=== PATIENT | female | born 1970 | race Caucasian/White ===

== ENCOUNTER 2022-08-16 08:12 | Inpatient (IN) | payer OTHER ==
[2022-08-16] MEDS ORDERED: ONDANSETRON 4 MG/2 ML VIAL ONE (08:28)
[2022-08-16 08:41] LABS: Absolute Lymphocytes (CBC) 2.6 K/uL (0.7-4.9); Hematocrit 29.8 % (36.0-45.0); Lymphocytes % 11.7 % (15.3-44.8); MCV 87.7 fL (80-100); MPV 7.2 fL (7.6-11.3)
--- NOTE | 2022-08-16 08:55 | RAD REPORT ---
EXAM DESCRIPTION: RAD - Chest Single View - 08/16/2022 8:44 am CLINICAL HISTORY: DYSPNEA COMPARISON: No comparisons FINDINGS: Lines: None. Lungs: Widespread bilateral interstitial and airspace disease. Pleural: No significant pleural effusions or pneumothorax. Cardiac: Mild cardiomegaly suspected. Mediastinum: Within normal limits. Bones: No acute fractures. Other: None IMPRESSION: Findings likely representing severe pneumonia. A chest CT is pending.
[2022-08-16 09:04] LABS: Platelet Estimate ADEQ
[2022-08-16 09:05] LABS: Albumin 2.5 g/dL (3.4-5.0); Bilirubin Direct 1.1 mg/dL (0-0.2); Bilirubin Total 1.7 mg/dL (0.2-1.0); Blood Morphology Comment NOT SEEN (NOT SEEN); Platelets, Giant FEW; Protein, Total 7.1 g/dL (6.4-8.2); Toxic Granulation PRESENT
[2022-08-16 09:08] LABS: Magnesium 2.8 mg/dL (1.8-2.4); Potassium 3.8 mmol/L (3.5-5.1); Troponin High Sensitivity 29.9 pg/mL (<58.9)
[2022-08-16] MEDS ORDERED: AZITHROMYCIN 500 MG INJ IVPB ONE (09:49)
[2022-08-16] MEDS ORDERED: CEFTRIAXONE 1000 MG/VIAL ONE (09:49)
[2022-08-16] MEDS ORDERED: NA CHLORIDE 0.9% 50 ML IV ONE (09:50)
[2022-08-16] MEDS ORDERED: NA CHLORIDE 0.9% 250 ML ONE (09:50)
[2022-08-16 09:52] LABS: SARS-COV-2 RT PCR NEGATIVE (NEGATIVE)
--- NOTE | 2022-08-16 10:08 | RAD REPORT ---
EXAM DESCRIPTION: CT - Chest For Pe Angio - 08/16/2022 9:58 am CLINICAL HISTORY: Shortness of breath COMPARISON: None. TECHNIQUE: Dynamically enhanced axial 3 mm thick images of the chest were obtained during administra tion of <100> mL Isovue 370 IV contrast. Coronal and oblique reconstruction images were generated and reviewed. Exam utilizes a protocol for optimal evaluation of pulmonary arterial tree. Maximum intensity projections 3D imaging was utilized All CT scans are performed using dose optimization technique as appropriate and may include automated exposure control or mA/KV adjustment according to patient size. FINDINGS: A pulmonary embolus is not seen. A thoracic aortic aneurysm is not noted. A pleural effusion is not seen. A pericardial effusion is not seen. Marked bilateral alveolar opacities. Lung consolidations. IMPRESSION: Negative for a pulmonary embolism. Marked bilateral pulmonary opacities probably pneumonia
[2022-08-16] MEDS ORDERED: ACETAMINOPHEN 325 MG TABLET ONE (10:22)
[2022-08-16] MEDS ORDERED: NA CHLORIDE 0.9% 1,000 ML ONE (10:52)
--- NOTE | 2022-08-16 11:10 | RAD REPORT ---
EXAM DESCRIPTION: US - Abdomen Exam Limited - 08/16/2022 10:56 am CLINICAL HISTORY: Abdominal pain. COMPARISON: None. FINDINGS: Borderline gallbladder distention The gallbladder wall is not thickened. A gallstone is not seen. The biliary tree is normal caliber. IMPRESSION: Borderline gallbladder distention
[2022-08-16] MEDS ORDERED: METHYLPREDNISOLONE 125 MG INJ ONE (11:14)
--- NOTE | 2022-08-16 11:49 | EDPHYS ---
Physician Documentation [facility] Name: Yasmani Carmona Age: 51 yrs Sex: Female : 1970 Arrival Date: 08/16/2022 Time: 08:15 Bed 7 Private MD: ED Physician Nicho Sparks HPI: 08/16 08:25 This 51 yrs old Female presents to ER via Unassigned with complaints of shortness of kb breath. 08:25 The patient has shortness of breath at rest. Onset: The symptoms/episode began/occurred kb 4 day(s) ago. Duration: The symptoms are continuous. The patient's shortness of breath is aggravated by exertion, supine position, is alleviated by nothing. Associated signs and symptoms: Pertinent positives: productive cough, fever. Severity of symptoms: At their worst the symptoms were moderate in the emergency department the symptoms are unchanged. The patient has not experienced similar symptoms in the past. The patient has not recently seen a physician. Pt reports shortness of breath and cough for 3-4 days. States she had fever 2 days ago. Symptoms have gotten progressively worse so she called 911 this morning. EMS reports O2 sat 50% upon their arrival, up to 94% on A\T\A treatment. Pt o2 sat 52% upon her arrival to ER. . 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 - Social history:: Smoking status: . ROS: 08:27 Cardiovascular: Negative for chest pain, palpitations, and edema. kb 08:27 Constitutional: Positive for fever. 08:27 Respiratory: Positive for cough, dyspnea on exertion, shortness of breath. 08:27 Abdomen/GI: Positive for nausea and vomiting. 08:27 All other systems are negative. Exam: 08:28 Constitutional: This is a well developed, well nourished patient who is awake, alert, kb and in no acute distress. Head/Face: Normocephalic, atraumatic. ENT: Moist Mucous membranes Cardiovascular: Regular rate and rhythm with a normal S1 and S2. No gallops, murmurs, or rubs. No pulse deficits. Abdomen/GI: Soft, non-tender. No distention Skin: Warm, dry with normal turgor. Normal color. MS/ Extremity: Pulses equal, no cyanosis. Neurovascular intact. Full, normal range of motion. Neuro: Awake and alert, GCS 15, oriented to person, place, time, and situation. Moves all extremities. Normal gait. Psych: Awake, alert, with orientation to person, place and time. Behavior, mood, and affect are within normal limits. 08:28 Respiratory: moderate respiratory distress is noted, Respirations: labored breathing, Breath sounds: rhonchi, that are moderate, are located in both bases. 08:41 ECG was reviewed by the Attending Physician. nayeli Vital Signs: 08:15 Pulse Ox 72% on R/A; jl7 08:15 BP 115 / 77; Pulse 109; Resp 40; Pulse Ox 52% on R/A; ll1 08:40 BP 137 / 68; Pulse 104; Resp 30; Temp 99.7(O); Pulse Ox 93% ; ll1 09:15 BP 110 / 80; Pulse 90; Resp 20; Pulse Ox 97% on BiPAP; ll1 10:00 Pulse Ox 95% on Non-rebreather mask; ll1 10:10 Pulse Ox 90% on 4 lpm NC; ll1 10:44 BP 118 / 99; Pulse 85; Resp 18; Pulse Ox 99% on BiPAP; ll1 11:28 BP 107 / 81; Pulse 81; Resp 20; Pulse Ox 98% ; ll1 12:55 BP 110 / 97; Pulse 79; Resp 17; Pulse Ox 100% on BiPAP; ll1 13:55 BP 111 / 76; Pulse 75; Pulse Ox 99% on R/A; ll1 14:55 BP 109 / 84; Pulse 75; Resp 18; Pulse Ox 98% on BiPAP; ll1 10:[address] ll1 10:10 NC not sufficient enough ll1 MDM: 08:15 Patient medically screened. nayeli 08:23 ED course: Patient called her son Nemesio and case was discussed with him via phone. RN ms3 took patient's phone number down to keep patient son informed during hospitalization.. 08:28 Data reviewed: vital signs, nurses notes. Data interpreted: Pulse oximetry: on room air kb is 52 %. Interpretation: hypoxia. Plan: O2 by Mask applied. 08:28 ED course: Pt O2 sat 98% on nonrebreather. kb 10:11 Counseling: I had a detailed discussion with the patient and/or guardian regarding: the kb historical points, exam findings, and any diagnostic results supporting the discharge/admit diagnosis, lab results, radiology results, the need for further work-up and treatment in the hospital. ED course: Severe sepsis criteria met at 0855: Source (A): pneumonia; SIRS criteria (B): HR, RR, WBC; Organ Dysfunction (C): Bipap, lactate. 10:39 Physician consultation: Stas Ceja MD was contacted at 10:39, regarding admission, patient's condition, would like further tests performed, us of liver. 08/16 08:16 Order name: Basic Metabolic Panel; Complete Time: 09:11 kb 08/16 08:16 Order name: CBC with Diff; Complete Time: 09:11 08/16 08:16 Order name: Magnesium; Complete Time: 09:11 08/16 08:16 Order name: NT PRO-BNP; Complete Time: 09:11 08/16 08:16 Order name: Troponin HS; Complete Time: 09:11 08/16 08:18 Order name: Blood Culture Adult (2) [facility] 08/16 08:18 Order name: Lactate w/ 2H reflex if indic.; Complete Time: 09:[address] [facility] 08/16 08:18 Order name: LFT's; Complete Time: 09:[address] [facility] 08/16 08:19 Order name: COVID-19/FLU A+B; Complete Time: 10:[address] [facility] 08/16 08:47 Order name: Manual Differential; Complete Time: 09:11 EDMO 08/16 11:02 Order name: UDS; Complete Time: 12:32 08/16 11:50 Order name: ABG; Complete Time: 12:32 08/16 12:21 Order name: Lactate Sepsis 2 HR Follow-up; Complete Time: 12:32 EDMS 08/16 12:41 Order name: CBC with Automated Diff EDMO 08/16 08:16 Order name: XRAY Chest (1 view); Complete Time: 09:01 08/16 08:16 Order name: BIPAP 08/16 08:53 Order name: Chest For Pe Angio; Complete Time: 11:31 EDMS 08/16 10:30 Order name: US Abdomen Limited; Complete Time: 11:11 kb 08/16 12:41 Order name: CBC with Automated Diff EDMO 08/16 12:41 Order name: Comprehensive Metabolic Panel EDMO 08/16 12:41 Order name: Comprehensive Metabolic Panel EDMO 08/16 12:41 Order name: Magnesium EDMO 08/16 12:41 Order name: Magnesium EDMO 08/16 12:41 Order name: Chest Single View EDMO 08/16 12:41 Order name: Chest Single View EDMO 08/16 12:41 Order name: Chest Single View [facility] 08/16 08:16 Order name: EKG; Complete Time: 08:16 kb 08/16 08:16 Order name: Cardiac monitoring; Complete Time: 08:36 kb 08/16 08:16 Order name: EKG - Nurse/Tech; Complete Time: 08:36 kb 08/16 08:16 Order name: IV Saline Lock; Complete Time: 08:36 kb 08/16 08:16 Order name: Labs collected and sent; Complete Time: 08:36 kb 08/16 08:16 Order name: O2 Per Protocol; Complete Time: 08:36 kb 08/16 08:16 Order name: O2 Sat Monitoring; Complete Time: 08:36 kb 08/16 12:41 Order name: CONS Physician Consult EDMO 08/16 12:41 Order name: NPO EDMO 08/16 12:48 Order name: Respiratory Therapy Consult EDMO EC:41 Rate is 97 beats/min. Rhythm is regular. QRS [place] is Normal. MO interval is normal at kb 120 msec. QRS interval is normal at 74 msec. QT interval is prolonged at 530 msec. Administered Medications: 08:30 Drug: Zofran (Ondansetron) 4 mg Route: IVP; Site: right antecubital; ll1 09:15 Follow up: Response: No adverse reaction ll1 08:47 Drug: Lasix (furosemide) 40 mg Route: IVP; Site: right antecubital; ll1 10:29 Follow up: Response: No adverse reaction ll1 10:10 Drug: Rocephin (cefTRIAXone) 1 grams Route: IV; Rate: calculated rate; Site: right ll1 antecubital; 10:48 Follow up: Response: No adverse reaction; IV Status: Completed infusion; IV Intake: [id number] 10:25 Drug: Tylenol 650 mg Route: PO; ll1 11:02 Follow up: Response: No adverse reaction ll1 10:49 Drug: Zithromax (azithromycin) 500 mg Route: IVPB; Infused Over: 1 hrs; Site: right ll1 antecubital; 12:17 Follow up: Response: No adverse reaction; IV Status: Completed infusion; IV Intake: ll1 1000ml 10:55 Drug: NS 0.9% 1000 ml Route: IV; Rate: 1000 ml; Site: right antecubital; ll1 11:02 Follow up: Response: No adverse reaction; IV Status: Order to discontinue infusion; IV ll1 Intake: 150ml 11:26 Drug: SOLU-Medrol (methylPrednisoLONE) 125 mg Route: IVP; Site: right antecubital; ll1 12:17 Follow up: Response: No adverse reaction ll1 Disposition: 08:23 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 HPI: 51-year-old female ms3 presents via clued EMS for shortness of breath that began 3 to 4 days prior to arrival. On EMS arrival patient's oxygen saturation was 50% on room air. EMS administered 1 albuterol Atrovent treatment in route. Patient denies pain at this time. My personal exam of patient reveals: Patient is alert, in moderate respiratory distress. Heart rate is tachycardic and regular. Lung sounds reveal rales in bilateral posterior lower lobes. Skin is nondiaphoretic, and without rashes. Patient's cranial nerves II through XII grossly intact, sensation intact. Attestation: The patient's history, exam findings, diagnostics, and a summary of any interventions or procedures was reviewed in detail with Nicho Sparks DO. 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 I agree with assessment ms3 and care plan and confirm the diagnosis (es) above. 12:38 Critical Care:. ms3 Disposition Summary: 08/16/22 11:48 Hospitalization Ordered Hospitalization Status: Inpatient Admission kb Provider: Stas Ceja Condition: Stable nayeli Problem: new kb Symptoms: are unchanged kb Bed/Room Type: Standard kb Location: Intensive Care Unit(08/16/22 19:39) Room Assignment: 2-(08/16/22 19:39) cg Diagnosis - Severe sepsis without septic shock kb - Pneumonia, unspecified organism kb Forms: - Medication Reconciliation Form kb - SBAR form kb Critical care time excluding procedures: 12:38 Critical care time: Bedside Care: 35 minutes, Consultation: 10 minutes, Family ms3 Intervention: 5 minutes. Total time: 50 minutes Signatures: Dispatcher [employer] EDMS Deena Lim, PAPA MUÑOZ-Laura Hoyt RN RN cg Emilia Foster RN RN jl7 Rebecca Artis RN RN ll1 Nicho Sparks, DO ms3 Corrections: (The following items were deleted from the chart) 08:51 08:28 Chest For Pe Angio ordered. EDMO EDMS 11:49 11:48 Telemetry/MedSurg (Inpatient) kb kb 11:49 11:48 kb kb 16:40 11:49 Intensive Care Unit kb jl7 16:40 11:49 kb jl7 19:23 16:40 [facility] ER HOLD jl7 cg 19:23 16:40 ERHOLD- jl7 cg 19:39 19:23 Telemetry/MedSurg (Inpatient) cg cg 19:39 19:23 cg cg
--- NOTE | 2022-08-16 11:49 | ER ---
Nurse's Notes [facility] Name: Yasmani Carmona Age: 51 yrs Sex: Female : 1970 Arrival Date: 08/16/2022 Time: 08:15 Bed 7 Private MD: Diagnosis: Severe sepsis without septic shock;Pneumonia, unspecified organism Presentation: 08/16 08:15 Chief complaint: EMS states: Toned out for difficulty breathing, pt 50% on RA, up to jl7 95% with albuterol and non-rebreather. Coronavirus screen: Client presents with at least one sign or symptom that may indicate coronavirus-19. Ebola Screen: No symptoms or risks identified at this time. Risk Assessment: Do you want to hurt yourself or someone else? Patient reports no desire to harm self or others. Onset of symptoms is unknown. 08:15 Method Of Arrival: EMS: [facility] 08:15 Acuity: MATT 1 [facility] 08:15 Initial Sepsis Screen: Does the patient meet any 2 criteria? RR > 20 per min. HR > 90 ll1 bpm. Yes Does the patient have a suspected source of infection? Yes: Productive cough/pneumonia. 08:16 Chief complaint: Patient states: SOB/cough for 3-4 days. States she has fever at night. ll1 Albuterol inhaler isn't helping. Triage Assessment: 08:34 General: Appears distressed, uncomfortable, ill, Behavior is cooperative, appropriate ll1 for age, restless. Pain: Denies pain. Respiratory: Reports shortness of breath cough that is labored breathing Airway is patent Trachea midline Respiratory effort is labored, using tripod position, Respiratory pattern is symmetrical, tachypnea Breath sounds are coarse bilaterally. Onset: The symptoms/episode began/occurred 3-4 days ago. GI: Abdomen is flat, Reports nausea, vomiting. 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 - Social history:: Smoking status: . Screenin:32 Abuse screen: Denies threats or abuse. Nutritional screening: No deficits noted. ll1 Tuberculosis screening: No symptoms or risk factors identified. Fall Risk IV access (20 points). Mental Status- Overestimates/Forgets Limitations (15 pts.). Total Little Fall Scale indicates Low Risk Score (25-44 pts). Fall prevention measures have been instituted. Side Rails Up X 2 Placed close to Nursing Station Frequent Obs/Assesments occuring As available Patient and Family Educated on Fall Prevention Program and strategies. Assessment: 08:35 Reassessment: No changes from previously documented assessment. Patient and/or family ll1 updated on plan of care and expected duration. Pain level reassessed. 09:21 Reassessment: Patient states symptoms have improved. General: Appears ill, slender, kr3 Behavior is calm, cooperative. 09:50 Reassessment: No changes from previously documented assessment. used bedpan to urinate, ll1 tolerated well. To CT via stretcher on NRB Patient states symptoms have improved. 10:19 Reassessment: No changes from previously documented assessment. Patient and/or family ll1 updated on plan of care and expected duration. Pain level reassessed. back on bipap. 10:44 Reassessment: No changes from previously documented assessment. Patient and/or family ll1 updated on plan of care and expected duration. Pain level reassessed. 11:28 Reassessment: No changes from previously documented assessment. Patient and/or family ll1 updated on plan of care and expected duration. Pain level reassessed. resting Patient states symptoms have improved. 12:15 Reassessment: No changes from previously documented assessment. Dr. Ceja at bedside. ll1 13:22 Reassessment: Patient appears in no apparent distress at this time. Patient and/or hb family updated on plan of care and expected duration. Pain level reassessed. 14:57 Reassessment: No changes from previously documented assessment. Patient and/or family ll1 updated on plan of care and expected duration. Pain level reassessed. 20:12 Reassessment: Patient appears in no apparent distress at this time. attempted to call aa9 report. Vital Signs: 08:15 Pulse Ox 72% on R/A; jl7 08:15 BP 115 / 77; Pulse 109; Resp 40; Pulse Ox 52% on R/A; ll1 08:40 BP 137 / 68; Pulse 104; Resp 30; Temp 99.7(O); Pulse Ox 93% ; ll1 09:15 BP 110 / 80; Pulse 90; Resp 20; Pulse Ox 97% on BiPAP; ll1 10:00 Pulse Ox 95% on Non-rebreather mask; ll1 10:10 Pulse Ox 90% on 4 lpm NC; ll1 10:44 BP 118 / 99; Pulse 85; Resp 18; Pulse Ox 99% on BiPAP; ll1 11:28 BP 107 / 81; Pulse 81; Resp 20; Pulse Ox 98% ; ll1 12:55 BP 110 / 97; Pulse 79; Resp 17; Pulse Ox 100% on BiPAP; ll1 13:55 BP 111 / 76; Pulse 75; Pulse Ox 99% on R/A; ll1 14:55 BP 109 / 84; Pulse 75; Resp 18; Pulse Ox 98% on BiPAP; ll1 10:[address] ll1 10:10 NC not sufficient enough ll1 ED Course: 08:15 Patient arrived in ED. kb 08:15 Deena Lim FNP-C is PHCP. kb 08:15 Nicho Sparks DO is Attending Physician. kb 08:15 Arm band placed on right wrist. jl7 08:28 Triage completed. jl7 08:30 Rebecca Artis, RN is Primary Nurse. ll1 08:30 Inserted saline lock: 18 gauge in right antecubital area, using aseptic technique. ll1 Blood collected. 08:35 Patient has correct armband on for positive identification. Bed in low position. Call ll1 light in reach. Side rails up X2. Client placed on continuous cardiac and pulse oximetry monitoring. NIBP monitoring applied. delineator on. 08:37 Lactate w/ 2H reflex if indic. Sent. ll1 08:37 Troponin HS Sent. ll1 08:37 NT PRO-BNP Sent. ll1 08:37 Magnesium Sent. ll1 08:37 CBC with Diff Sent. ll1 08:37 Basic Metabolic Panel Sent. ll1 08:46 XRAY Chest (1 view) In Process Unspecified. EDMS 09:09 Notified ED physician of a critical lab result(s). lactate 3.2, AST 1468, ALT 780. ll1 10:00 Chest For Pe Angio In Process Unspecified. EDMS 10:15 Blood Culture Adult (2) Sent. ll1 10:55 US Abdomen Limited In Process Unspecified. EDMS 11:23 UDS Sent. kr3 11:48 Stas Ceja MD is Hospitalizing Provider. kb 12:16 No provider procedures requiring assistance completed. Patient admitted, IV remains in ll1 place. Administered Medications: 08:30 Drug: Zofran (Ondansetron) 4 mg Route: IVP; Site: right antecubital; ll1 09:15 Follow up: Response: No adverse reaction ll1 08:47 Drug: Lasix (furosemide) 40 mg Route: IVP; Site: right antecubital; ll1 10:29 Follow up: Response: No adverse reaction ll1 10:10 Drug: Rocephin (cefTRIAXone) 1 grams Route: IV; Rate: calculated rate; Site: right ll1 antecubital; 10:48 Follow up: Response: No adverse reaction; IV Status: Completed infusion; IV Intake: 39same9 10:25 Drug: Tylenol 650 mg Route: PO; ll1 11:02 Follow up: Response: No adverse reaction ll1 10:49 Drug: Zithromax (azithromycin) 500 mg Route: IVPB; Infused Over: 1 hrs; Site: right ll1 antecubital; 12:17 Follow up: Response: No adverse reaction; IV Status: Completed infusion; IV Intake: ll1 1000ml 10:55 Drug: NS 0.9% 1000 ml Route: IV; Rate: 1000 ml; Site: right antecubital; ll1 11:02 Follow up: Response: No adverse reaction; IV Status: Order to discontinue infusion; IV ll1 Intake: 150ml 11:26 Drug: SOLU-Medrol (methylPrednisoLONE) 125 mg Route: IVP; Site: right antecubital; ll1 12:17 Follow up: Response: No adverse reaction ll1 Medication: 08:35 VIS not applicable for this client. ll1 Intake: 10:48 IV: 50ml; Total: 50ml. ll1 11:02 IV: 150ml; Total: 200ml. ll1 12:17 IV: 1000ml; Total: 1200ml. ll1 Outcome: 11:48 Decision to Hospitalize by Provider. kb 12:16 Condition: stable ll1 12:16 Instructed on the need for admit. 15:00 Admitted to ER Hold. Please see [facility] for further documentation. ll1 21:50 Patient left the ED. bb Signatures: Dispatcher [employer] EDMS Deena Lim, ROTARY HELPER-C ROTARY HELPER-Susannah Bruner RN RN bb Machelle Vincent, MARCO ANTONIO RN Emilia Foster RN RN jl7 Rebecca Artis RN RN ll1 Adali Davis RN RN aa9 Chiquita Crawford RN RN kr3 Corrections: (The following items were deleted from the chart) 08:51 08:46 In radiology for Chest For Pe Angio. EDNJ EDMS 12:56 11:28 BP 107 / 81; Pulse 81bpm; Resp 20bpm; Pulse Ox 98% RA; ll1 ll1 20:46 20:12 Reassessment: Patient appears in no apparent distress at this time. attempted to aa9 call report aa9
[2022-08-16 11:59] LABS: Barbiturates NEGATIVE (NEGATIVE); Benzodiazepines NEGATIVE (NEGATIVE); Cocaine NEGATIVE (NEGATIVE); METHAMPHETAM NEGATIVE (NEGATIVE); Methadone NEGATIVE (NEGATIVE); Opiates NEGATIVE (NEGATIVE); Phencyclidine NEGATIVE (NEGATIVE); THC Cannibis NEGATIVE (NEGATIVE)
[2022-08-16 12:14] LABS: Arterial Blood Carboxyhemoglob 0.3 % (0-1.5); Blood Gas Oxyhemoglobin 94.7 % (94-97); Blood O2 Saturation 95.9 % (92-98.5)
[2022-08-16] MEDS ORDERED: ONDANSETRON 4 MG/2 ML VIAL IV PRN (12:36)
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
[2022-08-16] MEDS ORDERED: ACETYLCYSTEINE IV SCH ×3 (14:00→19:00)
[2022-08-16] MEDS ORDERED: D5W IV SCH ×2 (14:00→19:00)
[2022-08-16] MEDS ORDERED: WATER IV SCH (15:00)
[2022-08-16] MEDS ORDERED: DEXTROSE 5% IV SCH (15:00)
[2022-08-16] MEDS ORDERED: OSELTAMIVIR 75 MG CAP ONE (16:11)
[2022-08-16] MEDS ORDERED: Levofloxacin 750mg IV 750 MG/150 ML BAG IV ONE (16:11)
[2022-08-16] MEDS ORDERED: ENOXAPARIN 40 MG/0.4 ML SQ ONE (16:11)
[2022-08-16] MEDS ORDERED: ACETYLCYST 6,000 MG/30 ML VIAL ONE (16:12)
[2022-08-16] MEDS: OSELTAMIVIR 75 MG CAP PO SCH ×2 (16:30→22:14)
[2022-08-16] MEDS: ACETYLCYST 20% 800 MG/4 ML VIAL PO SCH ×3 (16:30→22:24)
[2022-08-16] MEDS: ENOXAPARIN 40 MG/0.4 ML SQ SCH (16:30)
[2022-08-16] MEDS: Levofloxacin 750mg IV 750 MG/150 ML BAG IV SCH (16:30)
[2022-08-16] MEDS ORDERED: METHYLPREDNISOLONE 125 MG INJ IV SCH (17:00)
[2022-08-16] MEDS ORDERED: ACETAMINOPHEN 500 MG TAB ONE (17:57)
[2022-08-16] MEDS: ACETAMINOPHEN 500 MG TAB PO PRN ×2 (18:07→22:14)
[2022-08-16] MEDS: METHYLPREDNISOLONE 125 MG INJ IV SCH (22:13)
[2022-08-16] MEDS: QUETIAPINE 100MG TAB PO SCH (23:47)
[2022-08-17 04:52] LABS: Absolute Lymphocytes (CBC) 2.1 K/uL (0.7-4.9); Hematocrit 26.8 % (36.0-45.0); Lymphocytes % 11.7 % (15.3-44.8); MCV 87.3 fL (80-100); MPV 7.3 fL (7.6-11.3); RBC Red Blood Cell Count 3.06 M/uL (3.86-4.86)
[2022-08-17 05:11] LABS: Albumin 2.3 g/dL (3.4-5.0); Bilirubin Total 1.2 mg/dL (0.2-1.0); Magnesium 2.9 mg/dL (1.8-2.4); Potassium 3.8 mmol/L (3.5-5.1); Protein, Total 7.2 g/dL (6.4-8.2)
[2022-08-17] MEDS: ENOXAPARIN 40 MG/0.4 ML SQ SCH (07:19)
[2022-08-17] MEDS: OSELTAMIVIR 75 MG CAP PO SCH ×2 (07:20→22:12)
[2022-08-17] MEDS: ACETYLCYST 20% 800 MG/4 ML VIAL PO SCH ×3 (07:20→21:00)
[2022-08-17] MEDS: METHYLPREDNISOLONE 125 MG INJ IV SCH ×2 (07:20→22:11)
--- NOTE | 2022-08-17 09:21 | RAD REPORT ---
EXAM DESCRIPTION: RAD - Chest Single View - 08/17/2022 5:59 am CLINICAL HISTORY: flu, ards Chest pain. COMPARISON: Chest Single View dated 08/16/2022 FINDINGS: Portable technique limits examination quality. Extensive bilateral pulmonary opacities are noted, mildly improved since yesterday's study. The heart is upper limit normal in size. No displaced fractures. IMPRESSION: Mild improvement in lung aeration is seen since yesterday's examination.
[2022-08-17] MEDS: ACETAMINOPHEN 500 MG TAB PO PRN (10:48)
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
--- NOTE | 2022-08-17 12:51 | EKG ---
Test Date: 2022-08-16 Test Time: 08:40:24 Towel Stretcher: ALAINA MEASUREMENT RESULTS: Intervals: Rate: 97 VT: 120 QRSD: 74 QT: 418 QTc: 530 [place]: P: 67 VT: 120 QRS: 18 T: -6 INTERPRETIVE STATEMENTS: Normal sinus rhythm Nonspecific T wave abnormality Prolonged QT Abnormal ECG No previous ECG available for comparison Electronically Signed On 08-17-22 12:49:16 DOPSTER by Evelio Elliott
[2022-08-17] MEDS ORDERED: KETOROLAC 30 MG/ML INJ IV ONE (13:00)
[2022-08-17] MEDS: Levofloxacin 750mg IV 750 MG/150 ML BAG IV SCH (13:17)
[2022-08-17] MEDS: ENSURE ENLIVE 237 ML CAN PO SCH ×2 (13:32→21:00)
--- NOTE | 2022-08-17 16:17 | P.PN ---
Date of Service: 08/17/22 Subjective: no acute events overnight improving slightly ROS: 10 point ROS as noted above, otherwise negative Physical exam GEN: Alert, oriented, NAD HEENT: Normal conjunctiva, sclera anicteric CV: Regular rate and rhythm, no edema Pulm: mild labored respirations devaughn nonrebreather ABD: Soft, nontender, nondistended MSK: No joint tenderness Integumentary: No rashes, old skin grafts / scars, no evidence of infection Neuro: Normal speech, normal affect Problem List acute hypoxemic respiratory failure secondary to flu A , viral pneumonia, ARDS MARKY elevated LFTs - 2/2 hypoxic liver injury chronic pain patient with a few days of not feeling well and became short of breath day prior to admission cxr with severe b/l pulm opacities, CT with similar. appearance of ARDS Pt with severe sepsis - tachycardia, tachypnea, increased LFTs, lactic acidosis on admission lactic acidosis more secondary to hypoxia, was 50% on RA resolved given lasix in ED improving pulm consulted - recommended N-acetylcysteine, Solu-Medrol 80 mg twice daily, Levaquin MARKY suspect due to infection / pre-renal state improved given ARDS picture on imaging, will avoid IV fluids patient breathing more comfortably VTE: lovenox Code: full Dispo: home, ~3-4 days Time Spent Managing Pts Care (In Minutes): 35
[2022-08-17] MEDS: QUETIAPINE 100MG TAB PO SCH (22:12)
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
[2022-08-18] MEDS: ACETYLCYST 20% 800 MG/4 ML VIAL PO SCH ×2 (07:01→20:25)
[2022-08-18] MEDS: METHYLPREDNISOLONE 125 MG INJ IV SCH (07:08)
[2022-08-18] MEDS: ENOXAPARIN 40 MG/0.4 ML SQ SCH (07:08)
[2022-08-18] MEDS: OSELTAMIVIR 75 MG CAP PO SCH ×2 (07:09→20:25)
--- NOTE | 2022-08-18 07:18 | RAD REPORT ---
EXAM DESCRIPTION: RAD - Chest Single View - 08/18/2022 5:05 am CLINICAL HISTORY: flu, ards COMPARISON: Portable chest 08/17/2022, CT chest 08/16/2022 TECHNIQUE: AP portable chest image was obtained 08/18/2022 5:05 am . FINDINGS: Extensive bilateral lung parenchymal opacification has shown some improvement from prior d ay imaging. Very substantial amounts of lung parenchymal opacification remain. Heart and vasculature are normal. No measurable pleural effusion and no pneumothorax. No new bone fi nding. No acute aortic findings suspected. IMPRESSION: Further improvement in the bilateral lung parenchymal opacification since August 17. S ubstantial lung parenchymal disease remains.
--- NOTE | 2022-08-18 08:44 | P.PN ---
Subjective Date of Service: 08/18/22 Chief Complaint: hypoxic respiratory failure, ARDS Subjective: Improving (Patient is improving doing well still complaining of cough and congestion) Review of Systems General: Weakness Respiratory: Cough, Shortness of Breath Physical Examination - Vital Signs Temperature: 98.1 F Blood Pressure: 94/60 Pulse: 62 Respirations: 12 Pulse Ox (%): 95 - Physical Exam General: Alert, Oriented x3, Mild distress Respiratory: Crackles/rales, Expiratory wheezes Cardiovascular: Edema Gastrointestinal: Normal bowel sounds, Soft and benign, Non-distended Assessment And Plan - Current Problems (Diagnosis) (1) Respiratory failure Current Visit: Yes Status: Acute Plan: Patient is doing much better improving plan to wean off the oxygen DC BiPAP labs ordered for today cultures negative chest x-ray shows an improvement meds labs all reviewed reduce dose of steroids add nebulizers add an inhaler patient is an active smoker titrate sat to 90% stable to be transferred to the floor White cou nt is declining Qualifiers: Chronicity: acute
[2022-08-18] MEDS: ENSURE ENLIVE 237 ML CAN PO SCH ×3 (09:00→20:25)
[2022-08-18] MEDS: METHYLPREDNISOLONE 40 MG INJ IV SCH ×2 (09:00→20:24)
[2022-08-18 09:21] LABS: Hematocrit 27.4 % (36.0-45.0); MCV 86.8 fL (80-100); MPV 7.3 fL (7.6-11.3); RBC Red Blood Cell Count 3.16 M/uL (3.86-4.86)
[2022-08-18 09:41] LABS: Albumin 2.4 g/dL (3.4-5.0); Bilirubin Total 0.8 mg/dL (0.2-1.0); Potassium 3.9 mmol/L (3.5-5.1); Protein, Total 7.2 g/dL (6.4-8.2)
[2022-08-18] MEDS: ACETAMINOPHEN 500 MG TAB PO PRN ×2 (09:49→20:26)
[2022-08-18] MEDS: DULERA 200/5 (MOMETASONE/FORMOTEROL) INHALER IH SCH ×2 (11:06→20:24)
[2022-08-18] MEDS ORDERED: POTASSIUM 25 MEQ EFFERV TAB PO ONE (13:48)
[2022-08-18] MEDS ORDERED: POTASSIUM CL 40 MEQ in NA CHLORIDE 0.9% 500 ML IV SCH (14:00)
[2022-08-18] MEDS: Levofloxacin 750mg IV 750 MG/150 ML BAG IV SCH (14:17)
[2022-08-18] MEDS ORDERED: FUROSEMIDE 20 MG/ 2ML VIAL IV ONE (14:20)
--- NOTE | 2022-08-18 15:31 | P.PN ---
Subjective Date of Service: 08/18/22 Chief Complaint: hypoxic respiratory failure, ARDS Patient states she feels better today. She was requesting for breakfast. She is tolerating 10 L oxygen by nasal cannula. Physical Examination - Vital Signs Temperature: 98.1 F Blood Pressure: 99/65 Pulse: 66 Respirations: 12 Pulse Ox (%): 94 Assessment And Plan - Plan Physical exam GEN: Alert, oriented, NAD HEENT: Oxygen by nasal cannula c CV: Regular rate and rhythm, no edema Pulm: Non-labored respirations, mild bibasilar Rales. ABD: Soft, nontender, nondistended MSK: No joint tenderness Integumentary: No rashes, old skin grafts / scars, no evidence of infection Neuro: Normal speech, normal affect Problem List acute hypoxemic respiratory failure secondary to flu A , viral pneumonia ARDS MARKY Ischemic hepatitis chronic pain Plan cxr with severe b/l pulm opacities, CT with similar. appearance of ARDS Pt with severe sepsis - tachycardia, tachypnea, increased LFTs, lactic acidosis on admission lactic acidosis more secondary to hypoxia. Patient oxygen saturation 50% on room air Lactic acidosis resolved Status post lasix in ED Respiratory status is improved Seen by pulm who recommended N-acetylcysteine, Solu-Medrol 80 mg twice daily, Levaquin. MARKY suspect due to infection / pre-renal state MARKY improved Wean oxygen as tolerated. Out of bed to chair. VTE: lovenox Code: search engineer Spent Managing Pts Care (In Minutes): 32
[2022-08-18] MEDS: ALBUTEROL 2.5 MG/3 ML NEB SOL IH SCH ×2 (15:36→20:20)
--- NOTE | 2022-08-18 19:27 | PN ---
Date of Progress Note: 08/18/2022 Subjective: The patient was admitted with acute kidney injury and typical pneumonia. Her acute kidney injury was prerenal. The patient was treated to recover. Physical Examination: Vital Signs: Blood pressure 105/65, pulse of 62. Chest: Crackles bilateral. Heart: S1, S2. Regular. Abdomen: Soft, nontender. Extremities: No edema. Neurologic: Alert. No focality. Laboratory Data: WBC 16.9, H and H 9.2/27.4. Sodium 133, potassium 3.9, bicarb 36, BUN 38, creatinine 1, GFR of 69, calcium 8.5. Chest x-ray interstitial infiltration bilateral. Current Medications: Include Levaquin 750, Tamiflu, albuterol, Lovenox, ketorolac received yesterday, quetiapine, Ensure, Solu-Medrol, Assessment And Plan: 1. Acute kidney injury secondary to prerenal toxic acute tubular necrosis secondary to pneumonia, resolved. Looked to me slightly on the wet side. I am going to give single dose of Lasix and we will follow up. 2. Hypertension, controlled, optimal. Continue current treatment. 3. Hypokalemia. We will supplement oral and IV. 4. Marginal hyponatremia, possible dilutional. We will diurese. 5. Alkalosis secondary to contraction alkalosis possible intravascular, currently acceptable pH 7.48. We will follow up with Pulmonary. Time spent examining the patient [id number], reviewing data, lab and radiology, discussing the case with the patient, discussing the case with long line teamster including nursing and hospitalist more than 35 minutes COSMO Voice ID: [id number] Report ID: [id number] MADAN
[2022-08-18] MEDS: QUETIAPINE 100MG TAB PO SCH (20:25)
[2022-08-18] MEDS: BUSPIRONE HCL 5 MG TABLET PO SCH (20:25)
[2022-08-19] MEDS: ALBUTEROL 2.5 MG/3 ML NEB SOL IH SCH ×4 (01:20→20:20)
[2022-08-19 05:23] LABS: Hematocrit 26.4 % (36.0-45.0); MCV 87.2 fL (80-100); MPV 7.5 fL (7.6-11.3); RBC Red Blood Cell Count 3.03 M/uL (3.86-4.86)
[2022-08-19 05:29] LABS: Magnesium 2.7 mg/dL (1.8-2.4); Potassium 4.2 mmol/L (3.5-5.1)
[2022-08-19] MEDS: ENOXAPARIN 40 MG/0.4 ML SQ SCH (08:23)
[2022-08-19] MEDS: DULERA 200/5 (MOMETASONE/FORMOTEROL) INHALER IH SCH ×2 (08:24→20:08)
[2022-08-19] MEDS: BUSPIRONE HCL 5 MG TABLET PO SCH ×2 (08:24→20:09)
[2022-08-19] MEDS: METHYLPREDNISOLONE 40 MG INJ IV SCH (08:24)
[2022-08-19] MEDS: ACETYLCYST 20% 800 MG/4 ML VIAL PO SCH (08:24)
[2022-08-19] MEDS: OSELTAMIVIR 75 MG CAP PO SCH ×2 (08:24→20:09)
[2022-08-19] MEDS: ENSURE ENLIVE 237 ML CAN PO SCH ×3 (09:00→20:22)
[2022-08-19] MEDS ORDERED: RIVAROXABAN 20 MG TABLET PO SCH (09:00)
--- NOTE | 2022-08-19 12:14 | P.PN ---
Subjective Date of Service: 08/19/22 Chief Complaint: hypoxic respiratory failure, ARDS Subjective: Improving (Doing better still has some cough congestion) Review of Systems General: Weakness Respiratory: Cough, Shortness of Breath Physical Examination - Vital Signs Temperature: 96.8 F Blood Pressure: 100/61 Pulse: 62 Respirations: 14 Pulse Ox (%): 92 - Physical Exam General: Alert, Oriented x3 Respiratory: Rhonchi/gurgles Cardiovascular: No edema, Regular rate/rhythm Assessment And Plan - Current Problems (Diagnosis) (1) Respiratory failure Current Visit: Yes Status: Acute Plan: Patient admitted with ARDS doing much better liver function has improved significantly plans to switch to p.o. prednisone and levofloxacin may need home oxygen patient is a heavy active smoker on 4 L her oxygenation is satisfactory cultures negative plan for discharge on home bronchodilators steroids and oral of 7 days of levofloxacin follow-up with me in 2-week Qualifiers: Chronicity: acute
--- NOTE | 2022-08-19 13:20 | P.PN ---
Subjective Date of Service: 08/19/22 Chief Complaint: hypoxic respiratory failure, ARDS Patient reports improvement in his shortness of breath Oxygen weaned down to 4 L by nasal cannula. She has not been out of bed yet. Physical Examination - Vital Signs Temperature: 96.8 F Blood Pressure: 100/61 Pulse: 62 Respirations: 14 Pulse Ox (%): 92 Assessment And Plan - Plan Physical exam GEN: Alert, oriented, NAD HEENT: Oxygen by nasal cannula c CV: Regular rate and rhythm, no edema Pulm: Non-labored respirations, mild bibasilar Rales. ABD: Soft, nontender, nondistended MSK: No joint tenderness Integumentary: No rashes, old skin grafts / scars, no evidence of infection Neuro: Normal speech, normal affect Problem List acute hypoxemic respiratory failure secondary to flu A , viral pneumonia ARDS MARKY Ischemic hepatitis chronic pain Plan cxr with severe b/l pulm opacities, CT with similar appearance of ARDS Pt with severe sepsis - tachycardia, tachypnea, increased LFTs, lactic acidosis on admission lactic acidosis more secondary to hypoxia. Patient oxygen saturation was 50% on room air Lactic acidosis resolved On Lasix Respiratory status is improved and currently tolerating oxygen by nasal cannula. Seen by pulm who recommended N-acetylcysteine, Solu-Medrol 80 mg twice daily, Levaquin. IV steroid scaled down to oral prednisone 20 mg twice daily. IV Levaquin changed to oral Levaquin. MARKY resolved Increase mobility. PT consult. Social service to assist with arrangements for home oxygen. Discharge planning. Disposition pending PT evaluation VTE: lovenox Code: full time Spent Managing Pts Care (In Minutes): 28
--- NOTE | 2022-08-19 16:45 | PN ---
Date of Progress Note: 08/19/2022 Subjective: The patient was admitted with acute kidney injury, flu, pneumonia. The patient's kidney function has been improved. The patient yesterday received single dose of Lasix as the patient was on the wet side. The patient had good urine output. The patient down to 5 L per nasal cannula. Physical Examination: Vital Signs: When I saw the patient; blood pressure 100/61, pulse of 62, afebrile. Chest: Faint to wheezing bilateral. Heart: S1, S2. Regular. Abdomen: Soft, nontender. Extremities: No edema. Neurologic: Alert. No focality. Laboratory Data: WBC 19, H and H 9/26.4. Sodium 135, potassium 4.2, bicarb 34, BUN 31, creatinine 0.7, GFR 92, calcium 8.2, phosphorus 3, magnesium 2.7. Current Medications: The patient on include levofloxacin 500 daily, Tamiflu, breathing treatment. Assessment And Plan: 1. Acute kidney injury secondary to prerenal, recovered, resolved. 2. Acidosis, catabolic acidosis secondary to hypoxemia also resolved, currently contraction alkalosis. We will keep monitoring. 3. Hypokalemia, resolved. 4. Hyponatremia mostly secondary to atypical pneumonia. No neurological symptoms. We will continue to monitor. 5. Flu, pneumonia. We will follow up with primary and Pulmonary. Time spent examining the patient [id number], reviewing data, lab and radiology, discussing the case with the patient, discussing the case with steam shovel oiler including nursing and hospitalist more than 35 minutes COSMO Voice ID: [id number] Report ID: [id number] MADAN
[2022-08-19] MEDS ORDERED: FAMOTIDINE 20 MG/2 ML VIAL IV PRN (19:51)
[2022-08-19] MEDS: predniSONE 20 MG TAB PO SCH (20:09)
[2022-08-19] MEDS: QUETIAPINE 100MG TAB PO SCH (20:09)
[2022-08-19] MEDS: ACETAMINOPHEN 500 MG TAB PO PRN (20:09)
[2022-08-20] MEDS: ALBUTEROL 2.5 MG/3 ML NEB SOL IH SCH ×2 (01:50→06:30)
[2022-08-20 05:05] LABS: Hematocrit 29.2 % (36.0-45.0); MCV 88.4 fL (80-100); MPV 7.3 fL (7.6-11.3)
[2022-08-20 05:14] LABS: Magnesium 2.5 mg/dL (1.8-2.4); Phosphorus 3.3 mg/dL (2.5-4.9); Potassium 4.5 mmol/L (3.5-5.1)
[2022-08-20 06:46] VITALS: BMI 25.1
[2022-08-20] MEDS: ENOXAPARIN 40 MG/0.4 ML SQ SCH (07:55)
[2022-08-20] MEDS: predniSONE 20 MG TAB PO SCH (07:55)
[2022-08-20] MEDS: OSELTAMIVIR 75 MG CAP PO SCH (07:55)
[2022-08-20] MEDS: DULERA 200/5 (MOMETASONE/FORMOTEROL) INHALER IH SCH (07:56)
[2022-08-20] MEDS: BUSPIRONE HCL 5 MG TABLET PO SCH (07:56)
[2022-08-20] MEDS: ENSURE ENLIVE 237 ML CAN PO SCH ×2 (07:57→14:00)
[2022-08-20] MEDS ORDERED: levoFLOXacin 500 MG TAB PO SCH (09:00)
--- NOTE | 2022-08-20 10:26 | P.PN ---
Subjective Date of Service: 08/20/22 Chief Complaint: hypoxic respiratory failure, ARDS Patient states he feels much better today She is currently tolerating 1 L oxygen by nasal cannula. She was able to ambulate with a walker during PT yesterday. Physical Examination - Vital Signs Temperature: 97.2 F Blood Pressure: 111/67 Pulse: 66 Respirations: 17 Pulse Ox (%): 95 Assessment And Plan - Plan Physical exam GEN: Alert, oriented, NAD HEENT: Oxygen by nasal cannula c CV: Regular rate and rhythm, no edema Pulm: Non-labored respirations, mild bibasilar Rales. ABD: Soft, nontender, nondistended MSK: No joint tenderness Integumentary: No rashes, old skin grafts / scars, no evidence of infection Neuro: Normal speech, normal affect Problem List acute hypoxemic respiratory failure secondary to flu A , viral pneumonia ARDS MARKY Ischemic hepatitis chronic pain Plan Pt had severe sepsis with tachypnea, increased LFTs, lactic acidosis on admission lactic acidosis more secondary to hypoxia. Patient oxygen saturation was 50% on room air Lactic acidosis resolved Respiratory status is improved and currently tolerating oxygen by nasal cannula. Seen by pulm, initially on N-acetylcysteine, Solu-Medrol 80 mg twice daily, Levaquin. IV steroid scaled down to oral prednisone 20 mg twice daily. IV Levaquin changed to oral Levaquin. MARKY resolved Seen by PT, patient was able to ambulate with a rolling walker. Social service to assist with arrangements for home oxygen and home health VTE: lovenox Code: didactic program in dietetics director Spent Managing Pts Care (In Minutes): 28
[2022-08-20 15:17] VITALS: TEMP 97.3
[2022-08-20 16:05] VITALS: O2SAT 96
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
[2022-08-20 17:05] VITALS: BP 126/83
--- NOTE | 2022-08-20 18:44 | PN ---
Date of Progress Note: 08/20/2022 Subjective: Patient was admitted with flu pneumonia. Patient had respiratory failure. Patient had acute kidney injury, treated, secondary to poor perfusion; toxic ATN, treated, recovered. Patient's pneumonia has been improved. Patient is currently on nasal cannula. Physical Examination: Vital Signs: When I saw the patient; blood pressure was 111/67, pulse of 66, afebrile. Patient had good urine output of 1 L even balance. Chest: Wheezing bilateral. Heart: S1, S2 regular. Abdomen: Soft, nontender. Extremities: No edema. Neuro: Alert. No focality. Laboratory Data: WBC 23.6, H and H 9.7/29.2. Sodium 137, potassium 4.5, bicarb 31, BUN 21, creatinine 0.6. GFR of 109. Calcium 8.3. Phosphorus 3.3, magnesium 2.5. Current Medications: The patient is on include: 1. Albuterol. 2. Levaquin. 3. Tamiflu. 4. Lovenox. 5. Tylenol. 6. Quetiapine. 7. Zofran. 8. Prednisone 20 b.i.d. Assessment And Plan: 1. Acute kidney injury secondary to poor perfusion acute tubular necrosis, toxic. 2. acute tubular necrosis, recovered, resolved. 3. Hypokalemia, status post supplement, resolved. 4. Hyponatremia, dilutional/ADH secondary to atypical pneumonia, resolved. 5. Acidosis, poor perfusion, lactic acidosis, resolved. Patient is cleared from the renal standpoint for discharge planning. To follow up in the office in 2-3 weeks. Time spent examining the patient [id number], reviewing data, lab and radiology, discussing the case with the patient, discussing the case with seafood service team member including nursing and hospitalist more than 35 minutes COSMO Voice ID: [id number] Report ID: [id number] MADAN
== END 2022-08-20 18:32 | disposition home health service (06) | DRG 871 ==
LOC: ER 08:12 → ERHOLD 16:45 → 3RD-ICU 20:08
PROVIDERS: ADMIT Hospitalist; ATTEND Internal Medicine
PROC: 5A09357 Assistance with Respiratory Ventilation, Less than 24 Consecutive Hours, Continuous Positive Airway Pressure (ICD-10-PCS; principal; 2022-08-16)
DX: A41.89 Other specified sepsis (principal); J10.08 Influenza due to other identified influenza virus with other specified pneumonia; J12.9 Viral pneumonia, unspecified; J80 Acute respiratory distress syndrome; K72.00 Acute and subacute hepatic failure without coma; N17.0 Acute kidney failure with tubular necrosis; E87.20 Acidosis, unspecified; J44.0 Chronic obstructive pulmonary disease with (acute) lower respiratory infection; E87.1 Hypo-osmolality and hyponatremia; E87.6 Hypokalemia; R65.20 Severe sepsis without septic shock; G89.29 Other chronic pain; F17.200 Nicotine dependence, unspecified, uncomplicated; R79.89 Other specified abnormal findings of blood chemistry; Z88.8 Allergy status to other drugs, medicaments and biological substances; Z79.899 Other long term (current) drug therapy; Z20.822 Contact with and (suspected) exposure to COVID-19
CPT/HCPCS: 0240U; 36415; 71045; 71275; 76705; 80048; 80053; 80076; 80307; 82805; 83605; 83735; 83880; 84100; 84443; 84484; 85025; 85027; 87040; 93005; 94660; 96365; 96367; 96375; 97116; 97161; 97530; 99291; 99292; J0132; J0456; J1650; J1940; J2405; J2920; J2930; J3480; J3535; J7030; J7040; J7050; J7060; J7512; J7608; J7613; Q9967